=== PATIENT | female | born 1980 | race Two or more races ===

== ENCOUNTER 2018-10-23 09:00 | Inpatient (IN) | payer OTHER ==
[~2018-10-23] VITALS: Ht 177.8 cm; Wt 152.0 kg
[2018-11-06] MEDS ORDERED: PRENATAL 19 TA1 EACH PO (12:05)
== END 2018-11-08 13:58 | DRG 807 ==
LOC: LDR 11-06 09:56 → OB/GYN 11-06 18:38
PROVIDERS: ADMIT Obstetrics & Gynecology
PROC: 10E0XZZ Delivery of Products of Conception, External Approach (ICD-10-PCS; principal; 2018-11-06)
PROC: 0KQM0ZZ Repair Perineum Muscle, Open Approach (ICD-10-PCS; 2018-11-06)
PROC: 0W8NXZZ Division of Female Perineum, External Approach (ICD-10-PCS; 2018-11-06)
PROC: 4A1HXCZ Monitoring of Products of Conception, Cardiac Rate, External Approach (ICD-10-PCS; 2018-11-06)
PROC: 4A033R1 Measurement of Arterial Saturation, Peripheral, Percutaneous Approach (ICD-10-PCS; 2018-11-06)
DX: O70.1 Second degree perineal laceration during delivery (principal); Z37.0 Single live birth; Z3A.39 39 weeks gestation of pregnancy

== ENCOUNTER 2018-10-30 09:30 | Outpatient (CLI) | payer OTHER | END 2018-10-30 10:41 | disposition home or self-care (01) | LOC: NST 09:30 | DX: Z34.83 Encounter for supervision of other normal pregnancy, third trimester (principal) ==

== ENCOUNTER 2019-06-03 09:55 | Day surgery (SDC) | payer OTHER ==
[~2019-06-03 09:55] MED LIST: PRENATAL 19 TA1 EACH PO
== END 2019-06-03 15:40 | disposition home or self-care (01) ==
LOC: AMB-ENDOS 09:55
DX: K29.50 Unspecified chronic gastritis without bleeding (principal)